=== PATIENT | female | born 1965 | race Caucasian/White ===

== ENCOUNTER 2022-12-28 16:57 | Emergency (ER) | payer BC, OTHER ==
[~2022-12-28] VITALS: Ht 165.1 cm; Wt 91.0 kg
[2022-12-28 17:11] VITALS: TEMP 98.7; O2SAT 100
[2022-12-28 18:30] VITALS: BP 214/112; PULSE 88; RESP 18
[2022-12-28] MEDS ORDERED: FENTANYL CITRATE/PF 50MCG/ML 2ML VIAL IM ONE (18:30)
[2022-12-28] MEDS ORDERED: ONDANSETRON HCL 4MG/2ML INJ IV ONE (22:00)
[2022-12-28] MEDS ORDERED: PROPOFOL 200MG/20ML VIAL IV PRN (22:00)
[2022-12-28] MEDS ORDERED: HYDR-4001 MT (23:17)
== END 2022-12-29 00:45 | disposition home or self-care (01) ==
LOC: ER 16:57
DX: S82.852A Displaced trimalleolar fracture of left lower leg, initial encounter for closed fracture (principal); M97.22XA Periprosthetic fracture around internal prosthetic left ankle joint, initial encounter; I10 Essential (primary) hypertension; W50.2XXA Accidental twist by another person, initial encounter; Y93.89 Activity, other specified; Y92.89 Other specified places as the place of occurrence of the external cause; Y99.8 Other external cause status
CPT/HCPCS: 73600; 73610; 27818; 96372; 99152; 99285; J3010; J2405; J2704; Z7610; 96374; 99284